=== PATIENT | female | born 1960 | race Caucasian/White ===

== ENCOUNTER 2016-07-07 17:25 | Emergency (ER) | payer SELFPAY ==
[2016-07-07 17:38] VITALS: BP 172/87; PULSE 84; TEMP 98.7; BMI 31.6
--- NOTE | 2016-07-07 17:53 | EDPRACDOC ---
- General Information Stated Complaint: DENTAL PAIN RT LOWER JAW Time Seen by Provider: 07/07/16 17:44 Home Medications: Home Medications Atenolol/Chlorthalidone [Atenolol-Chlorthal Tab (50mg/25mg)] 1 tab PO DAILY 10/24 Zolpidem Tartrate [Ambien] 10 mg PO HS PRN 06/17/13 Pravastatin [Pravachol] 40 mg PO DAILY 10/31/15 Amoxicillin Trihydrate [Amoxicillin] 500 mg PO TID #30 tab 07/07/16 Meloxicam [Mobic] 7.5 mg PO BID #20 tab 07/07/16 Allergies/Adverse Reactions: Allergies Allergy/AdvReac Type Severity Reaction Status Date / Time No Known Allergies Allergy Verified 07/07/16 17:52 - History of Present Illness Onset: TODAY HPI: PT PRESENTS TODAY WITH RIGHT LOWER TOOTH PAIN X 1 DAY. NO FEVER. Reported Tooth Problem: 29 Pain Severity: Reports: Moderate Relevant History of: Reports: None Modifying Factors: improves with: Cold, Chewing Associated Signs and Symptoms: Reports: None ED Past Medical History - History Reviewed Yes Nurses notes reviewed and agree except as marked - Patient Medical History Cardiac History: Reports: Hypertension, Hypercholesterolemia GI/ History: Denies: Urinary Tract Infection - Social Medical History Smoking Status: Former smoker EDM Review of Systems - Review of Systems ROS Negative Except as Marked: Yes All systems reviewed and were negative except as marked Constitutional: No Symptoms Reported Eyes: No Symptoms Reported Ears: No Symptoms Reported Throat: No Symptoms Reported Nose: No Symptoms Reported Mouth: Tooth Pain Respiratory: No Symptoms Reported Cardiovascular: No Symptoms Reported Gastrointestinal: No Symptoms Reported Neurological: No Symptoms Reported Musculoskeletal: No Symptoms Reported Integumentary: No Symptoms Reported - Physical Exam Constitutional: Alert (Awake), No apparent distress Oriented to: Time, Person, Place Last recorded Vital Signs: Last Vital Signs Temp 98.7 F 07/07/16 17:37 Pulse 84 07/07/16 17:37 Resp 18 07/07/16 17:37 BP 172/87 07/07/16 17:37 Pulse Ox 95 07/07/16 17:37 Oxygen Pulse Oxygen Saturation 95 O2 Device Oxygen Flow Rate Fraction of Inspired Oxygen ( FIO2) - HEENT Head: Normal Eye Exam: Normal Oropharynx: Other (NOTED FILLING TO TOOTH #29 W/OUT APPARENT INFECTION) Tympanic Membrane: Normal ENT EAC: Normal Nose: No Symptoms Reported Neck: Normal, Denies Pain, Midline - Respiratory/Cardiovascular Respiratory: Normal - CTA Cardiovascular: Normal - GI Palpation: Normal Tenderness: Non tender - Musculoskeletal Back: Normal Extremities: Normal - Integumentary Skin: Normal Lymphatics: Normal - Neurologic Cerebellar: Normal Mood Description: Normal Thought: Coherent Perception: Normal ED Tooth Problem Exam - HEENT Face: Normal Teeth: Right: Molar-2 Lower (FILLING; PAIN) Gingiva: Normal Palate: Normal Mouth Range of Motion: Normal Sinuses: Normal Oropharynx: Normal Neck: Normal, Denies Pain, Midline Decision Time to Discharge: 17:52 - Departure Disposition: Home Condition: Good Final Diagnosis: Dental caries Instructions: Dental Caries (ED) Education/Counseling Given To: Patient Education/Counseling Given Regarding: Diagnosis, Treatment, Follow Up Referrals: None,No Provider [Primary Care Provider] - One Week CLINICKP [NonStaff] - One Week Prescriptions: Amoxicillin Trihydrate [Amoxicillin] 500 mg PO TID #30 tab Meloxicam [Mobic] 7.5 mg PO BID #20 tab Additional Instructions: [facility] [phone]
== END 2016-07-07 17:58 | disposition home or self-care (01) ==
LOC: EDMC 17:25
DX: K02.9 Dental caries, unspecified (principal)
CPT/HCPCS: 99282